=== PATIENT | female | born 1955 | race Caucasian/White ===

== ENCOUNTER 2020-07-15 17:52 | Emergency (ER) | payer OTHER ==
[~2020-07-15] VITALS: Ht 165.1 cm; Wt 79.4 kg
[2020-07-15] MEDS ORDERED: LISINOPRIL5 MG PO (18:47)
[2020-07-15] MEDS ORDERED: ACETAMINOPHEN-1 EAC2 PO (18:48)
[2020-07-15] MEDS ORDERED: EMGALITY120 MG/1 M SUB-Q (18:48)
[2020-07-15] MEDS ORDERED: PREGABALIN100 MG PO (18:48)
[2020-07-15] MEDS ORDERED: METFORMIN HCL1000 MG PO (18:49)
[2020-07-15] MEDS ORDERED: PSEUDOEPHEDRIN120 MG PO (18:49)
[2020-07-15] MEDS ORDERED: OMEPRAZOLE20 MG PO (18:49)
[2020-07-15] MEDS ORDERED: PREMARIN0.3 MG PO (18:49)
== END 2020-07-15 19:00 | disposition home or self-care (01) ==
LOC: ED 17:52
DX: S82.831A Other fracture of upper and lower end of right fibula, initial encounter for closed fracture (principal); X50.1XXA Overexertion from prolonged static or awkward postures, initial encounter; G43.909 Migraine, unspecified, not intractable, without status migrainosus; Z88.8 Allergy status to other drugs, medicaments and biological substances; Z91.02 Food additives allergy status
CPT/HCPCS: 99283